=== PATIENT | female | born 1975 | race Caucasian/White ===

== ENCOUNTER 2022-12-02 16:30 | Outpatient (CLI) | payer OTHER ==
[2022-12-02 20:34] LABS: BASOPHILS # (AUTO) 0.1 10^3/uL (0.0-0.1); EOSINOPHILS # (AUTO) 0.3 10^3/uL (0.0-0.7); HCT - HEMATOCRIT 39.8 % (37.0-47.0); HGB - HEMOGLOBIN 12.9 g/dL (12.0-16.0); LYMPHOCYTES # (AUTO) 2.7 10^3/uL (1.5-3.5); LYMPHOCYTES % (AUTO) 32.2 %; MEAN CORPUSCULAR HEMOGLOBIN 31.9 pg (27.0-31.0); MEAN CORPUSCULAR HGB CONC 32.4 g/dL (32.0-36.0); MEAN CORPUSCULAR VOLUME 98.5 fL (81.0-99.0); MEAN PLATELET VOLUME 10.6 fL (7.9-10.8); MONOCYTES # (AUTO) 0.8 10^3/uL (0.0-1.0); MONOCYTES % (AUTO) 9.1 %; NEUTROPHILS # (AUTO) 4.5 10^3/uL (1.5-6.6); NEUTROPHILS % (AUTO) 54.5 %; PLT - PLATELET COUNT 285 10^3/uL (130-450); RED BLOOD COUNT 4.04 10^6/uL (4.20-5.40); RED CELL DISTRIBUTION WIDTH 11.9 % (12.0-15.0); WHITE BLOOD COUNT 8.3 x10^3/uL (4.8-10.8)
[2022-12-02 20:48] LABS: INFECTIOUS MONONUCLEOSIS NEGATIVE (Negative)
== END 2022-12-02 16:45 | disposition home or self-care (01) ==
LOC: LAB.N 16:30
PROVIDERS: ATTEND Family Medicine
DX: J02.9 Acute pharyngitis, unspecified (principal)
CPT/HCPCS: 36415; 85025; 86308